=== PATIENT | male | born 1985 | race Caucasian/White ===

== ENCOUNTER 2025-06-02 13:00 | Emergency (ER) | payer OTHER, SELFPAY ==
--- NOTE | ~2025-06-02 | XR_ITS ---
CLINICAL HISTORY: pain Three views of the sacrum and coccyx. COMPARISON: None provided. FINDINGS: Sacrum appears intact. Type 2 coccyx. Coccyx appears intact. Visualized adjacent bones of the pelvis appear intact. No radiopaque foreign body. IMPRESSION: 1. No radiographic evidence of acute injury to the sacrum and coccyx. This document has been electronically signed by: Puneet Slaughter MD on 06/02/2025 14:34:23
--- NOTE | ~2025-06-02 | XR_ITS ---
CLINICAL HISTORY: back pain Three views of the lumbar spine. COMPARISON: None provided. FINDINGS: Five lsb-wdy-[id number] lumbar type vertebral bodies. Normal vertebral body alignment. Vertebral body heights are maintained. No evidence of acute vertebral body injury. Mild loss of disc space height at L5-S1. Facet joint arthrosis at L5-S1. Visualized portions of the bones of the pelvis appear intact. IMPRESSION: 1. No radiographic evidence of acute injury to the lumbar spine. 2. Mild degenerative changes at L5-S1. This document has been electronically signed by: Puneet Slaughetr MD on 06/02/2025 14:36:02
--- NOTE | ~2025-06-02 | US_ITS ---
CLINICAL HISTORY: Torsions? Ultrasound scrotum. COMPARISON: None provided. Technique: Real time sonographic imaging, including color-flow imaging, was performed by the wharf tally clerk. Multiple admissions representative static images were saved for review. FINDINGS: Right side: Right testicle is normal in size and echotexture. Normal color flow and spectral tracing. Small right hydrocele. Right epididymal head cyst measuring 0.2 x 0.2 x 0.2 cm. Right testicle: 5.2 x 2.2 x 3.5 cm Left side: Left testicle is normal in size and echotexture. Normal color flow and spectral tracing. Small left hydrocele. Left epididymal head cysts measuring 0.5 x 0.3 x 0.4 cm, and 0.2 x 0.3 x 0.2 cm. Left testicle: 5.1 x 2.2 x 3.4 cm IMPRESSION: 1. No evidence of testicular torsion. 2. Small bilateral hydrocele. 3. Bilateral epididymal head cysts measuring up to 0.5 cm on the left and 0.2 cm on the right. This document has been electronically signed by: Puneet Slaughter MD on 06/02/2025 15:50:15
--- NOTE | ~2025-06-02 | US_ITS ---
CLINICAL HISTORY: Torsions? Ultrasound scrotum. COMPARISON: None provided. Technique: Real time sonographic imaging, including color-flow imaging, was performed by the cement mason apprentice. Multiple arborist representative static images were saved for review. FINDINGS: Right side: Right testicle is normal in size and echotexture. Normal color flow and spectral tracing. Small right hydrocele. Right epididymal head cyst measuring 0.2 x 0.2 x 0.2 cm. Right testicle: 5.2 x 2.2 x 3.5 cm Left side: Left testicle is normal in size and echotexture. Normal color flow and spectral tracing. Small left hydrocele. Left epididymal head cysts measuring 0.5 x 0.3 x 0.4 cm, and 0.2 x 0.3 x 0.2 cm. Left testicle: 5.1 x 2.2 x 3.4 cm IMPRESSION: 1. No evidence of testicular torsion. 2. Small bilateral hydrocele. 3. Bilateral epididymal head cysts measuring up to 0.5 cm on the left and 0.2 cm on the right. This document has been electronically signed by: Puneet Slaughter MD on 06/02/2025 15:50:15
[2025-06-02 13:02] VITALS: BP 142/78; PULSE 76; RESP 18; TEMP 37; O2SAT 100
--- NOTE | 2025-06-02 13:02 | ED.BACK ---
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 Patient states having sudden low back pain radiating down leg. patient states back pain worse on movement. patient than states having testicular lingering pain since heavy lifting of latch, but denies any swelling, bulging, or mass in testicles. Related Data Previous Rx's ?Medication ?Instructions ?Recorded cyclobenzaprine 10 mg tablet 10 mg PO BEDTIME PRN muscle spasm 06/06/25 #10 tabs naproxen 500 mg tablet 500 mg PO BID PRN pain #14 tabs 06/06/25 Allergies Allergy/AdvReac Type Severity Reaction Status Date / Time No Known Allergies Allergy Verified 06/02/25 13:02 Review of Systems Review of Systems: back pain/testicular pain Yes all other systems are reviewed and are negative Physical Exam Vital Signs: Vital Signs: Last Vital Signs Temp 98.2 F 06/02/25 16:58 Pulse 79 06/02/25 16:58 Resp 16 06/02/25 16:58 BP 122/78 06/02/25 16:58 Pulse Ox 100 06/02/25 16:58 O2 Del Method Room Air 06/02/25 16:58 BMI result Body Mass Index 30.0 Const: General: cooperative, healthy appearing, comfortable, no acute distress, well developed, alert, awake and Physically active Orientation/consciousness: patient oriented x3 HEENT: Head: Yes normal to inspection, Yes No palpable skull fracture present, Yes normocephalic and Yes atraumatic Eyes: General: appearance normal, both eyes and all related structures Neck: Neck: Yes normal visual inspection, Yes full ROM, Yes no lymphadenopathy, Yes no meningeal signs, Yes trachea midline, Yes supple, No anterior neck swelling and No tender Chest: Chest palpation & inspection: normal inspection of the chest and normal palpation of entire chest wall Resp: Effort & Inspection: normal respiratory effort and able to speak in complete sentences Cardio: Jugular venous distension: no JVD Heart sounds: S1 normal heart sound present and S2 normal heart sound present GI: Inspection: Yes normal to inspection Palpation (GI): Soft to palpation, not firm, nontender, no guarding and not rigid : Other: Negative for any swelling of mass/bulging in testicles/groin. Mild bilateral testicular tenderness. Negative for any penile discharge or penile lesions. Negative for high-riding testicles. General: Yes no CVA tenderness Back/Spine/Pelvis: Back: no CVA tenderness and back tenderness (lumbral/sacral tendernes) Skin: General skin exam: no rashes or lesions noted, elasticity normal and turgor normal Neuro: General: patient oriented x3, gait normal, tone normal, moves all extremities, Normal light touch and pain sensation, no meningeal signs, no focal motor deficits, CN's II-XI intact bilaterally and normal sensation to monofilament Extrem: General: Yes normal to inspection and Yes full ROM Psych: Appearance: grossly normal, well kempt and not disheveled Course Course Course Narrative: This is an RME: Additional HPI, ROS, PE not included below will be deferred to primary provider. RME assessment and note performed by: Magnolia Monterroso PA-C This is a [id number]-male, with no known medical problems, who presents to the ER with complaints of back pain. Reports that while he was at work at 8:45AM this morning, he was picking up a 30lb lid and felt a pain into his back. Reports that he has had pain shoot down his left leg. Reporting no urinary or bowel retention or incontinence. Reports that he has soreness in his testicles as well, describing it as I got kicked there . No testicular swelling. 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 Plan: xray lumbar spine Medications Administered Discontinued Medications Generic Name Dose Route Start Last Admin Trade Name Freq PRN Reason Stop Dose Admin Ketorolac Tromethamine 30 mg 06/02/25 16:36 06/02/25 16:57 Ketorolac Tromethamine 30 Mg/Ml Vial IM 06/02/25 16:37 30 mg ONCE ONE Administration Medical Decision Making Medical Decision Making [facility] Narrative: 39-year-old male back pain after heavy lifting with referred pain to the testicles. Patient denies any urinary/bowel incontinence or any genital numbness. 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 X-rays ordered. Due to patient states testicular pain other low suspicion for torsion was sent for ultrasound. Negative for signs of hernia or incarcerated hernia. - UA, Xray and scrotal ultrasound were normal. patient explained worrisome signs and informed to return to the ED immeidatley. Not suspecting pyelonephritis, kidney stones, cauda equinus syndrome, epidural abscess, STI, or any other life-threatening etiology Differential Diagnosis Differential Diagnoses: The differential diagnosis associated with the presentation includes (Back strain hernia) Admission/Observation Consideration of admission/observation: Escalation of care including admission/observation considered Lab Data Labs: Lab Results 06/02/25 Range/Units 14:15 Urine Color Dark Yellow Urine Appearance Turbid Urine pH 8.0 (5.0-9.0) Ur Specific Oden 1.020 (1.005-1.025) Urine Protein Negative (Neg-Trace) mg/dL Urine Glucose (UA) Negative (Negative) mg/dL Urine Ketones Negative (Negative) mg/dL Urine Blood Negative (Negative) Urine Nitrite Negative (Negative) Ur Leukocyte Esterase Negative (Negative) Independent Historian Clinical information obtained from an independent historian. History obtained from or confirmed by: Other (Patient) Prescription Management I considered prescription management with: Pain Medication Discharge Plan Discharge Clinical Impression: Strain of lumbar region, Pain in scrotum Patient Disposition: Home, Self-Care Instructions: Low Back Strain (ED), Testicle Pain (ED), Lower Back Exercises (ED) Additional Instructions: Recommend follow-up with primary care provider and were connection. Your images came back reassuring. Return to the ED immediately for any urinary/bowel incontinence, inability to walk, testicular pain, blood in urine, flank pain, fever, chills, penile discharge, nausea, vomiting, abdominal pain, or any other concerning symptoms. CLINICAL HISTORY: Torsions? Ultrasound scrotum. COMPARISON: None provided. Technique: Real time sonographic imaging, including color-flow imaging, was performed by the certified nursing attendant. Multiple retail wireless sales representative static images were saved for review. FINDINGS: Right side: Right testicle is normal in size and echotexture. Normal color flow and spectral tracing. Small right hydrocele. Right epididymal head cyst measuring 0.2 x 0.2 x 0.2 cm. Right testicle: 5.2 x 2.2 x 3.5 cm Left side: Left testicle is normal in size and echotexture. Normal color flow and spectral tracing. Small left hydrocele. Left epididymal head cysts measuring 0.5 x 0.3 x 0.4 cm, and 0.2 x 0.3 x 0.2 cm. Left testicle: 5.1 x 2.2 x 3.4 cm IMPRESSION: 1. No evidence of testicular torsion. 2. Small bilateral hydrocele. 3. Bilateral epididymal head cysts measuring up to 0.5 cm on the left and 0.2 cm on the right. This document has been electronically signed by: Puneet Slaughter MD on 06/02/2025 15:50:15 CLINICAL HISTORY: back pain Three views of the lumbar spine. COMPARISON: None provided. FINDINGS: Five [id number] lumbar type vertebral bodies. Normal vertebral body alignment. Vertebral body heights are maintained. No evidence of acute vertebral body injury. Mild loss of disc space height at L5-S1. Facet joint arthrosis at L5-S1. Visualized portions of the bones of the pelvis appear intact. IMPRESSION: 1. No radiographic evidence of acute injury to the lumbar spine. 2. Mild degenerative changes at L5-S1. This document has been electronically signed by: Puneet Slaughter MD on 06/02/2025 14:36:02 CLINICAL HISTORY: pain Three views of the sacrum and coccyx. COMPARISON: None provided. FINDINGS: Sacrum appears intact. Type 2 coccyx. Coccyx appears intact. Visualized adjacent bones of the pelvis appear intact. No radiopaque foreign body. IMPRESSION: 1. No radiographic evidence of acute injury to the sacrum and coccyx. This document has been electronically signed by: Puneet Slaughter MD on 06/02/2025 14:34:23 Prescriptions: No Action cyclobenzaprine 10 mg tablet 10 mg PO BEDTIME PRN (Reason: muscle spasm) Qty: 10 0RF Rx Instructions: side effect is drowsiness. Do not take at work or while driving. naproxen 500 mg tablet 500 mg PO BID PRN (Reason: pain) Qty: 14 0RF Referrals: [facility] [Outside] - 3 days Referral Note: Back strain scrotum pain injury at work Clinical Impression: Strain of lumbar region; Pain in scrotum Stand Alone Forms: Work/School Release Interventions: ED Discharge Assessment Last Done: 06/02/25 16:58 Discharge Date/Time: 06/02/25 16:59 Print Language: Yoruba
--- OUTSIDE RECORDS SUMMARY | 2025-06-02 13:25 | XMS_ITS ---
Author Name [facility] Organization Unknown Results Test Name/Text Value Interpretation Date Range Source TROPONIN I, HIGH SENSITIVITY <3.0 ng/L Normal 11/02/2024 - [facility] CREATININE 1.0 mg/dL Normal 11/02/2024 0.6 - 1.2 [facility] POTASSIUM 3.2 mmol/L Below low normal 11/02/2024 3.6 - 5.1 [facility] ANION GAP 10.0 mmol/L Normal 11/02/2024 3 - 11 [facility] BICARBONATE 26.0 mmol/L Normal 11/02/2024 23 - 32 [facility] CALCIUM, TOTAL 9.3 mg/dL Normal 11/02/2024 8.4 - 10.2 [facility] UREA NITROGEN 10.0 mg/dL Normal 11/02/2024 8 - 24 [facility] GLOMERULAR FILTRATION RATE ML/MIN/1.73 SQ M.PREDICTED 99.0 mL/min/1.73m*2 Normal 11/02/2024 60 - [facility] CHLORIDE 103.0 mmol/L Normal 11/02/2024 100 - 111 [facility] SODIUM 139.0 mmol/L Normal 11/02/2024 137 - 144 [facility] GLUCOSE 107.0 mg/dL Normal 11/02/2024 70 - [address] [facility] [address] 3.0 10*3/uL Normal 11/02/2024 1.4 - 6.[address] [facility] [address] 0.1 10*3/uL Normal 11/02/2024 0 - 0.3 [facility] HEMATOCRIT 43.2 % Normal 11/02/2024 40 - 52 [facility] MCV 77.6 fL Below low normal 11/02/2024 80 - 100 [facility] BASOPHILS % 0.6 % Normal 11/02/2024 0 - 2 [facility] MCHC 34.5 g/dL Normal 11/02/2024 32 - 36 [facility] RED CELL COUNT 5.57 10*6/ L Normal 11/02/2024 4.4 - 5.9 [facility] RBC DISTRIBUTION WIDTH 12.4 % Normal 11/02/2024 11.6 - 14.8 [facility] WHITE CELL COUNT 5.4 10*3/uL Normal 11/02/2024 3.8 - 10.6 [facility] NEUTROPHIL % 56.3 % Normal 11/02/2024 40 - 70 [facility] MCH 26.8 pg Normal 11/02/2024 26 - 34 [facility] IMMATURE GRANULOCYTE % 0.6 % Normal 11/02/2024 0 - 0.6 [facility] PLATELET COUNT 241.0 10*3/uL Normal 11/02/2024 150 - 440 [facility] MONOCYTE % 8.6 % Normal 11/02/2024 4 - [address] [facility] [address] 0.0 10*3/uL Normal 11/02/2024 0 - 0. [address] [facility] [address] 0.5 10*3/uL Normal 11/02/2024 0.2 - 0.8 [facility] HEMOGLOBIN 14.9 g/dL Normal 11/02/2024 13 - [address] [facility] [address] 1.7 10*3/uL Normal 11/02/2024 0.7 - 4.5 [facility] LYMPHOCYTE % 32.0 % Normal 11/02/2024 20 - 50 [facility] EOSINOPHIL % 1.9 % Normal 11/02/2024 0 - 6 [facility] AUTO NRBC % 0.0 % Normal 11/02/2024 0 - 0 [facility] INFLUENZA B PCR (PANTHER) Not Detected Normal 03/19/2024 - [facility] RSV PCR (PANTHER) Not Detected Normal 03/19/2024 - [facility] INFLUENZA A PCR (PANTHER) Not Detected Normal 03/19/2024 - [facility] SARS-COV-2 PCR (CEPHEID) Negative Normal 03/19/2024 [facility] CALCIUM, TOTAL 9.1 mg/dL Normal 10/30/2023 8.4 - 10.2 [facility] POTASSIUM 4.0 mmol/L Normal 10/30/2023 3.6 - 5.1 [facility] GLUCOSE 94.0 mg/dL Normal 10/30/2023 70 - 200 [facility] UREA NITROGEN 10.0 mg/dL Normal 10/30/2023 8 - 24 [facility] HS SODIUM 140.0 mmol/L Normal 10/30/2023 137 - 144 [facility] BICARBONATE 30.0 mmol/L Normal 10/30/2023 23 - 32 [facility] ANION GAP 7.0 mmol/L Normal 10/30/2023 3 - 11 [facility] GLOMERULAR FILTRATION RATE ML/MIN/1.73 SQ M.PREDICTED 113.0 mL/min/1.73m*2 Normal 10/30/2023 60 - [facility] CREATININE 0.9 mg/dL Normal 10/30/2023 0.6 - 1.2 [facility] CHLORIDE 103.0 mmol/L Normal 10/30/2023 100 - 111 [facility] AST (SGOT) 14.0 U/L Below low normal 10/30/2023 17 - 35 [facility] BILIRUBIN, DIRECT 0.1 mg/dL Normal 10/30/2023 0 - 0.5 [facility] ALT (SGPT) 18.0 U/L Normal 10/30/2023 8 - 39 [facility] ALBUMIN, AUTOMATED 4.7 g/dL Normal 10/30/2023 3.8 - 5.3 [facility] ALKALINE PHOSPHATASE 108.0 U/L Normal 10/30/2023 39 - 113 [facility] BILIRUBIN, TOTAL 0.4 mg/dL Normal 10/30/2023 0.1 - 1.2 [facility] PROTEIN TOTAL 7.5 g/dL Normal 10/30/2023 6.2 - 8.1 [facility] LIPASE 19.0 U/L Normal 10/30/2023 8 - [address] [facility] [address] 2.1 10*3/uL Normal 10/30/2023 0.7 - 4.5 [facility] MCHC 32.6 g/dL Normal 10/30/2023 32 - 36 [facility] EOSINOPHIL % 1.1 % Normal 10/30/2023 0 - [address] [facility] [address] 0.7 10*3/uL Normal 10/30/2023 0.2 - 0.8 [facility] AUTO NRBC % 0.0 % Normal 10/30/2023 0 - 0 [facility] MCH 26.5 pg Normal 10/30/2023 26 - 34 [facility] NEUTROPHIL % 66.4 % Normal 10/30/2023 40 - [address] [facility] [address] 0.1 10*3/uL Normal 10/30/2023 0 - 0.3 [facility] BASOPHILS % 0.6 % Normal 10/30/2023 0 - [address] [facility] [address] 0.1 10*3/uL Normal 10/30/2023 0 - 0. 2 [facility] RED CELL COUNT 5.66 10*6/ L Normal 10/30/2023 4.4 - 5.9 [facility] WHITE CELL COUNT 9.0 10*3/uL Normal 10/30/2023 3.8 - 10.[address] [facility] [address] 6.0 10*3/uL Normal 10/30/2023 1.4 - 6.3 [facility] MCV 81.3 fL Normal 10/30/2023 80 - 100 [facility] PLATELET COUNT 289.0 10*3/uL Normal 10/30/2023 150 - 440 [facility] IMMATURE GRANULOCYTE % 0.6 % Normal 10/30/2023 0 - 0.6 [facility] HEMOGLOBIN 15.0 g/dL Normal 10/30/2023 13 - 18 [facility] RBC DISTRIBUTION WIDTH 12.8 % Normal 10/30/2023 11.6 - 14.8 [facility] MONOCYTE % 7.4 % Normal 10/30/2023 4 - 12 [facility] HEMATOCRIT 46.0 % Normal 10/30/2023 40 - 52 [facility] LYMPHOCYTE % 23.9 % Normal 10/30/2023 20 - 50 [facility] History of Medication Use Medication Directions Dispensed Refills Start Date End Date Stat Sumatripan Oral Tablet Sumatripan Oral Tablet QTY: 0 tablet Days: 0 Refills: 0 Written: 10/08/23 Patient Instructions: 10/08/2023 active pantoprazole (PROTONIX) 40 mg EC tablet Take 40 mg by mouth in the morning. 04/04/2022 active SUMAtriptan (IMITREX) 100 mg tablet active Allergies Allergen Reaction Severity Comment Documented Date Source Statu s NO METAL ALLERGY [facility] Encounters Encounter Type Encounter Reason Primary Diagnosis Location Date Emergency Chest pain, unspecified Chest pain, unspecified [facility] 11/02/2024 Ambulatory Acute pharyngitis, unspecified Acute pharyngitis, unspecified [facility] 03/19/2024 Ambulatory Anterior soft tissue impingement Anterior soft tissue impingement [facility] 11/05/2023 Emergency Left upper quadrant pain Left upper quadrant pain [facility] 10/30/2023 Ambulatory [facility] 10/08/2023 Ambulatory Follow-up Follow-up [facility] 07/20/2023 Ambulatory Pain in left ank le and joints of left foot [facility] 05/18/2023 Ambulatory Pain in left ank le and joints of left foot [facility] 05/01/2023 Ambulatory Pain in left ank le and joints of left foot [facility] 05/01/2023 Ambulatory [facility] 04/10/2023 Ambulatory Pain in left ank le and joints of left foot [facility] 04/10/2023 Ambulatory Consult [facility] 04/04/2022 Care Team Organization Name Specialty Phone Email Start Date End Da te [facility] 07/202304/27/2025 [facility] NO PCP Primary Care 05/01/202312/2022 [facility] PCP,No Primary Care 05/01/2023 [facility] 04/10/2023 04/10/20 [facility] 04/10/2023 [facility] Sandra Chauhan Primary Care 04/04/2022 07/18/2024 JenniferGlider Gissel Primary [facility] 02/21/2022 05/16/2022
--- OUTSIDE RECORDS SUMMARY | 2025-06-02 13:25 | XMS_ITS | Clinical Summary ---
Author Organization [facility] Address [address] [place] [address] Care Team Providers Care Export Freight Specialist Name Role Phone Unavailable Primary Care Provider Unavailabl e Social History Tobacco Use Types Packs/Day Years Used Date Smoking Tobacco: Never Assessed Sex and Gender Information Value Date Recorded Sex Assigned at Male 10/13/2023 7:25 AM EST Gender Identity Male 10/13/2023 7:25 AM EST Sexual Orientation Not on file Job Start Date Occupation Industry Not on file Not on file Not on file Plan of Treatment Health Maintenance Due Date Last Done Comments Hepatitis B Vaccines (1 of 3 - 3-dose series) 1986 Hepatitis C Screening 1986 COVID-19 Vaccine (#1) 03/26/1987 Depression Screening 1998 Preventative Health Evaluation 2004 DTap / Tdap / Td (1 - Tdap) 2005 Influenza Vaccine (Season Ended) 2025 Pneumococcal Vaccine Aged Out No long er eligible based on patient's age to complete this topic RSV Ped < 20 months Aged Out No longe r eligible based on patient's age to complete this topic
--- OUTSIDE RECORDS SUMMARY | 2025-06-02 13:25 | XMS_ITS | Encounter Summary ---
Author Organization [facility] Address [address] [place] [id number] Care Team Providers Care Electrical Controls Designer Name Role Phone Sandra Chauhan MD Primary Care Provider [phone] Encounter Details Date Type Department Care Team (Late st Contact Info) Description 01/06/2022 Scanned Document GENERIC EXTERNAL DATA DEPARTMENT Sandra Chauhan MD [address] [place] [address] Social History Tobacco Use Types Packs/Day Years Used Date Smoking Tobacco: Never Assessed Sex and Gender Information Value Date Recorded Sex Assigned at Not on file Legal Sex Male 5:06 PM EDT Gender Identity Not on file Sexual Orientation Not on file documented as of this encounter Plan of Treatment Not on file documented as of this encounter Visit Diagnoses Not on filedocumented in this encounter Care Teams Electrical Controls Designer Relationship Specialty Start Date End Date Sandra Chauhan MD PCP - General Family Medicine 01/27/22 documented as of this encounter
--- OUTSIDE RECORDS SUMMARY | 2025-06-02 13:25 | XMS_ITS | Clinical Summary ---
Author Organization [facility] Address [address] [place] [address] Care Team Providers Care Icu Nurse Name Role Phone Hugo Lamar MD Primary Care Provider Hugo Sy MD Unavailable Unavailable Active Problems Problem Noted Date Diagnosed Date Right wrist sprain 10/07/2019 Overview (01/03/2024): Impression - [id number]: Work note given to remain out of work through the at which point he will have any no other evaluation by physical therapy to determine whether he will need further treatment; at that time he will probably need another work note depending on what is decided by physical therapy. Encourage patient again to be seen by worker's Comp medical provider or PCP for further care Social History Tobacco Use Types Packs/Day Years Used Date Smoking Tobacco: Never Assessed Sex and Gender Information Value Date Recorded Sex Assigned at Not on file Legal Sex Male 5:32 PM EDT Gender Identity Not on file Sexual Orientation Not on file Last Filed Vital Signs Vital Sign Reading Time Taken Comments Blood Pressure 112/80 11/15/2019 12:08 PM EST Pulse 78 11/15/2019 12:08 PM EST Temperature 36.7 C (98 F) 11/15/2019 12:08 PM EST Respiratory Rate 16 11/15/2019 12:08 PM EST Oxygen Saturation 98% 11/15/2019 12:08 PM EST Inhaled Oxygen Concentration - - Weight 93.4 kg (206 lb) 11/15/2019 12:08 PM EST Height 175.3 cm (5' 9 ) 11/10/2019 4:34 PM EST Body Mass Index 30.42 11/10/2019 4:34 PM EST Plan of Treatment Health Maintenance Due Date Last Done Comments Hepatitis C Screening 1986 DTaP/Tdap/Td (1 - Tdap) 2004 Hep B (1 of 3 - 19+ 3-dose series) 2005 COVID-19 Vaccine (2023-2 5 season) 2024 Influenza (#1) 2025 Zoster (Shingrix) (1 of 2) 2036 HPV Vaccine Aged Out No longer eligi ble based on patient's age to complete this topic Hep A Aged Out No longer eligi ble based on patient's age to complete this topic Hib Aged Out No longer eligi ble based on patient's age to complete this topic Meningococcal ACWY Aged Out No longer eligible based on patient's age to complete this topic Pneumococcal Aged Out No longer eligi ble based on patient's age to complete this topic Care Teams Icu Nurse Relationship Specialty Start Date End Date Hugo Lamar MD PCP - General 07/06/23 Hugo Lamar MD PCP - Backup PCP 12/31/23
[2025-06-02 14:07] VITALS: BP 115/76; PULSE 77; RESP 16; O2SAT 97
[2025-06-02 14:20] LABS: Appearance Urine Turbid; Glucose Urine UA Negative (Negative); PH 8.0 (5.0-9.0); Specific Gravity - Urine 1.020 (1.005-1.025)
[2025-06-02 16:00] VITALS: BP 129/84; PULSE 92; RESP 19; TEMP 36.8; O2SAT 98
[2025-06-02 16:58] VITALS: BP 122/78; PULSE 79; RESP 16; TEMP 36.8; O2SAT 100
== END 2025-06-02 16:59 | disposition home or self-care (01) ==
PROVIDERS: Physician Assistant; Emergency Provider Emergency Medicine Emergency Medical Services
DX: S39.012A Strain of muscle, fascia and tendon of lower back, initial encounter (principal); N50.812 Left testicular pain; N50.811 Right testicular pain; R10.2 Pelvic and perineal pain; M53.3 Sacrococcygeal disorders, not elsewhere classified; X50.0XXA Overexertion from strenuous movement or load, initial encounter; Y93.9 Activity, unspecified; Y92.9 Unspecified place or not applicable; Y99.0 Civilian activity done for income or pay
CPT/HCPCS: 72100; 72220; 76870; 81003; 93975; 96372; 99284; J1885

== ENCOUNTER → 2025-06-02 13:05 | Outpatient (BNV) | payer OTHER, SELFPAY | PROVIDERS: Emergency Provider Emergency Medicine Emergency Medical Services; Visit Provider Radiology Diagnostic Radiology | DX: N43.3 Hydrocele, unspecified (principal); N50.3 Cyst of epididymis; X50.0XXA Overexertion from strenuous movement or load, initial encounter; Y99.0 Civilian activity done for income or pay | CPT/HCPCS: 72100; 72220; 76870; 93975 ==

== ENCOUNTER → 2025-06-06 13:12 | Outpatient (BNVA) | payer OTHER, SELFPAY | PROVIDERS: Visit Provider Registered Nurse | DX: M54.50 Low back pain, unspecified (principal) | CPT/HCPCS: 99202 ==

== ENCOUNTER → 2025-06-13 09:35 | Outpatient (BNVA) | payer OTHER, SELFPAY | PROVIDERS: Visit Provider Registered Nurse | DX: M54.50 Low back pain, unspecified (principal) | CPT/HCPCS: 99213 ==

== ENCOUNTER → 2025-07-04 10:31 | Outpatient (BNVA) | payer OTHER, SELFPAY | PROVIDERS: Visit Provider Registered Nurse | DX: M54.50 Low back pain, unspecified (principal) | CPT/HCPCS: 99213 ==

== ENCOUNTER → 2025-07-18 10:23 | Outpatient (BNVA) | payer OTHER, SELFPAY | PROVIDERS: Visit Provider Registered Nurse | DX: S39.012D Strain of muscle, fascia and tendon of lower back, subsequent encounter (principal); X50.3XXD Overexertion from repetitive movements, subsequent encounter | CPT/HCPCS: 99213 ==

== ENCOUNTER → 2025-08-08 10:36 | Outpatient (BNVA) | payer OTHER, SELFPAY | PROVIDERS: Visit Provider Registered Nurse | DX: S39.012D Strain of muscle, fascia and tendon of lower back, subsequent encounter (principal); X50.0XXD Overexertion from strenuous movement or load, subsequent encounter | CPT/HCPCS: 99214 ==

== ENCOUNTER → 2025-09-12 13:16 | Outpatient (BNVA) | payer OTHER, SELFPAY | PROVIDERS: Visit Provider Registered Nurse | DX: S39.012D Strain of muscle, fascia and tendon of lower back, subsequent encounter (principal); X50.0XXD Overexertion from strenuous movement or load, subsequent encounter | CPT/HCPCS: 99213 ==

== ENCOUNTER → 2025-10-10 10:28 | Outpatient (BNVA) | payer OTHER, SELFPAY | PROVIDERS: Visit Provider Registered Nurse | DX: S39.012D Strain of muscle, fascia and tendon of lower back, subsequent encounter (principal); X50.0XXD Overexertion from strenuous movement or load, subsequent encounter | CPT/HCPCS: 99214 ==

== ENCOUNTER → 2025-11-07 11:04 | Outpatient (BNVA) | payer OTHER, SELFPAY | PROVIDERS: Visit Provider Registered Nurse | DX: M54.50 Low back pain, unspecified (principal) | CPT/HCPCS: 99213 ==